=== PATIENT | female | born 1965 | race Caucasian/White ===

== ENCOUNTER 2018-10-18 00:17 | Day surgery (SDC) | payer OTHER ==
[2018-10-18] MEDS ORDERED: LEVSOD100 PO (08:19)
[2018-10-18] MEDS ORDERED: ASPI81CH PO (08:19)
[2018-10-18] MEDS ORDERED: OMEPRAZOLE20 MG PO (08:20)
[2018-10-18] MEDS ORDERED: LISI5 PO (08:20)
[2018-10-18] MEDS ORDERED: PROAIR RESPICL90 MCG INH (08:21)
== END 2018-10-18 11:27 | disposition home or self-care (01) ==
LOC: ATC 00:17
DX: D50.0 Iron deficiency anemia secondary to blood loss (chronic) (principal); E03.9 Hypothyroidism, unspecified; E78.5 Hyperlipidemia, unspecified; F41.9 Anxiety disorder, unspecified; Z79.899 Other long term (current) drug therapy
CPT/HCPCS: 36430; 86850; 86900; 86901; 86923; J7050; P9016